=== PATIENT | male | born 1975 | race Caucasian/White ===

== ENCOUNTER 2021-09-10 08:16 | Emergency (ER) | payer OTHER, SELFPAY ==
[2021-09-10 08:25] VITALS: BP 130/89; PULSE 73; RESP 18; TEMP 36.7; O2SAT 99; BMI 38.0
[2021-09-10 08:37] VITALS: PULSE 63; O2SAT 96
--- NOTE | 2021-09-10 08:40 | ED.URI ---
HPI - URI/Sore Throat General Chief Complaint: Upper Respiratory Symptoms Stated Complaint: Achey, congestion, headache. poss exposure Time Seen by Provider: 09/10/21 08:30 Source: patient Mode of arrival: Ambulatory History of Present Illness HPI Narrative: Patient is a 46-year-old male with no past medical history presenting today with COVID like symptoms. He had a faint line on his home test. Symptoms have been ongoing for last 2 days. He has significant body aches cough sore throat. He is vaccinated with Juvenal and Juvenal back in November. He is here continue usual test or work. Has taken Nyquil which has helped with some body aches. Related Data Home Medications Medication Instructions Recorded Confirmed No Known Home Medications 09/10/21 09/10/21 Allergies Allergy/AdvReac Type Severity Reaction Status Date / Time No Known Drug Allergies Allergy Verified 09/10/21 08:35 Review of Systems Review of Systems ROS Unobtainable: All systems reviewed & are unremarkable except as noted in HPI and below Constitutional Constitutional: Reports as per HPI, Reports body ache(s), Reports chills, Reports fatigue, Reports fever(s) and Reports headache(s) ENT Ears, Nose, Mouth, and Throat: Denies dizziness, Reports headache(s) and Reports sore throat Cardiovascular Cardiovascular: Denies chest pain and Denies chest pain at rest Respiratory Respiratory: Reports cough Gastrointestinal Gastrointestinal: Denies abdominal pain, Denies nausea and Denies vomiting Musculoskeletal Musculoskeletal: Reports myalgias Integumentary/Breasts Skin/Breast: Reports rash Neurologic Neurologic: Denies dizziness and Reports headache(s) Endocrine Endocrine: Reports fatigue Patient History Medical History (Updated 09/10/21 @ 08:56 by Deepti Billy DO) Healthy adult male Social History Smoking Status: Never smoker Smoking Status: Never smoker alcohol intake frequency: 0-2 drinks per day Substance Use Type: does not use Exam Initial Vital Signs Initial Vital Signs: Vital Signs Temperature 98.1 F 09/10/21 08:25 Pulse Rate 73 09/10/21 08:25 Respiratory Rate 18 09/10/21 08:25 Blood Pressure 130/89 09/10/21 08:25 Pulse Oximetry 99 09/10/21 08:25 GENERAL: Alert 46-year-old male and in no acute distress. HEENT: Head atraumatic,EOMI, pupils reactive, face symmetric, moist mucous membranes CARDIOVASCULAR: Regular rate and rhythm without murmurs, rubs or gallops. RESPIRATORY: Breath sounds equal bilaterally, no wheezes rales or rhonchi. ABDOMEN: Soft, nontender. Normoactive bowel sounds all 4 quadrants. No guarding or rebound. EXTREMITIES: Normal range of motion, no clubbing or edema. Neurovascularly intact NEUROLOGICAL: Alert and oriented x4. SKIN: Warm, dry, no laceration, no petechiae, no rashes or lesions. Course Orders Ordered: ED Orders 09/10/21 08:35 COVID19 -Nasal swab/Pre-Proc Stat Vital Signs Vital signs: Vital Signs - 8 hr 09/10/21 08:25 09/10/21 08:37 09/10/21 09:00 Temperature 98.1 F Pulse Rate 73 63 59 L Respiratory Rate 18 Blood Pressure 130/89 Pulse Oximetry 99 96 96 09/10/21 09:03 09/10/21 09:05 Temperature Pulse Rate 52 L Respiratory Rate 20 Blood Pressure 132/87 Pulse Oximetry 95 MDM - URI/Sore Throat Lab Data Labs: Lab Results 09/10/21 Range/Units 08:35 SARS-CoV-2 (PCR) Positive H (Negative) MDM Narrative Medical decision making narrative: At this time patient has no high risk for morbidity vaccinated with Juvenal and Juvenal, discussion with him on home monitoring. Discharge Plan Departure Patient Disposition: Home Clinical Impression: COVID-19 Instructions: DI for COVID-19 (Suspected or Confirmed ) Activity Restrictions/Additional Instructions: * if you have not yet been vaccinated is still recommended and encouraged that you do so once your infection has passed *Follow up with your primary provider in 2-3 days or call [phone] AT HOME: -Monitor oxygen with pulse oximeter. If less than 90% for more than 1 hour please return to emergency department -I recommend lying on stomach for side rather than back, it has been proven to increase oxygen levels -Wash hands frequently. -Stay isolated at home please follow the isolation instructions below. -Increase fluid intake. -you may take Tylenol as directed if needed for pain or fever EMERGENCY warning signs for COVID-19: - Difficulty breathing or shortness of breath, oxygen less than 90% - Persistent pain or pressure in the chest - New confusion or inability to arouse - Bluish lips or face CDC Guidelines for home isolation: - Stay away from others - Limit contact with pets and animals: If you must care for a pet, wash your hands before and after interacting with them - Wear a mask while in public all places - Cover your mouth and nose with a tissue when you cough or sneeze. Dispose of tissues in a lined trash can and wash your hands immediately with soap and water for at least 20 seconds. If soap and water are not available, clean hands with alcohol-based hand goodwill representative that contains at least 60% alcohol. - Clean your hands often with soap and water for at least 20 seconds - Avoid touching your eyes, nose and mouth with unwashed hands - Do not share dishes, drinking glasses, cups, eating utensils, towels, or bedding with other people in your home. After using these items, wash them thoroughly with soap and water or put in the amusement ride operator. - Clean high-touch surfaces in your isolation area (?sick room? and bathroom) every day; let a caregiver clean and disinfect high-touch surfaces in other areas of the home. Clean the area or item with soap and water or another detergent if it is dirty. Then, use a household disinfectant. Prescriptions: No Action No Known Home Medications 0RF
[2021-09-10 08:53] LABS: COVID19 -Nasal RAPID POSITIVE (Negative)
[2021-09-10 09:00] VITALS: PULSE 59; O2SAT 96
[2021-09-10 09:03] VITALS: PULSE 52; RESP 20; O2SAT 95
[2021-09-10 09:05] VITALS: BP 132/87
== END 2021-09-10 09:13 | disposition home or self-care (01) ==
PROVIDERS: Emergency Provider Emergency Medicine
DX: U07.1 COVID-19 (principal)
CPT/HCPCS: 87635; 99281; 99282; C9803

== ENCOUNTER 2024-09-25 20:59 | Emergency (ER) | payer OTHER, SELFPAY ==
--- NOTE | 2024-09-25 21:00 | DI.RAD.S_ITS ---
PROCEDURE: XR CHEST 1V INDICATIONS: eval for PNA TECHNIQUE: One view of the chest was acquired. COMPARISON: None. FINDINGS: Surgical changes and devices: None. Lungs and pleura: Low lung volumes. No consolidation or pleural effusion. Mediastinum: Normal heart size Bones and chest wall: Unremarkable IMPRESSION: No acute radiographic abnormality on this single view study. Low lung volumes. Dictated by: Jose Nation M.D. on 09/25/2024 at 21:47 Approved by: Jose Nation M.D. on 09/25/2024 at 21:47
[2024-09-25 21:02] VITALS: BP 154/86; PULSE 83; RESP 16; TEMP 36.9; O2SAT 95; BMI 38.0
--- NOTE | 2024-09-25 22:04 | ED.GENADULT ---
HPI - General Adult General Chief complaint: Upper Respiratory Symptoms Stated complaint: possible pneumonia Time Seen by Provider: 09/25/24 21:00 Source: patient Mode of arrival: Family Vehicle History of Present Illness HPI narrative: Patient was a 49-year-old male. No reported medical problems. Takes no medications. Is here for evaluation of approximately 1 week of congestion, intermittent fevers, cough, chest congestion. He states this evening his cough got so bad that he actually threw up once. No recent travel. No recent antibiotics. He was concerned about pneumonia. Related Data Previous Rx's Medication Instructions Recorded benzonatate 100 mg capsule 100 mg PO BID-TID PRN cough #12 09/25/24 caps Allergies Allergy/AdvReac Type Severity Reaction Status Date / Time No Known Drug Allergies Allergy Verified 09/10/21 08:35 Review of Systems Review of Systems ROS Unobtainable: All systems reviewed & are unremarkable except as noted in HPI and below Patient History Medical History Healthy adult male Social History Smoking Status: Never smoker Smoking Status: Never smoker alcohol intake frequency: 0-2 drinks per day Exam Initial Vital Signs Initial Vital Signs: Vital Signs Temperature 98.5 F 09/25/24 21:02 Pulse Rate 83 09/25/24 21:02 Respiratory Rate 16 09/25/24 21:02 Blood Pressure 154/86 H 09/25/24 21:02 Pulse Oximetry 95 09/25/24 21:02 Oxygen Delivery Method Room Air 09/25/24 21:02 Const General: cooperative and comfortable HENMT Head: normal to inspection and normocephalic Resp Effort & Inspection: normal respiratory effort Auscultation: clear to auscultation bilaterally Cardio Rate: regular rate Rhythm: regular rhythm GI Inspection: non-distended Palpation: soft, No guarding and No tender Skin General: no rashes or lesions noted Neuro General: patient alert, patient awake and moves all extremities Extrem General: normal to inspection and capillary refill normal Course Orders Ordered: ED Orders 09/25/24 21:00 XR chest 1V Stat Discontinued Medications Benzonatate (Benzonatate 100 Mg Capsule) 100 mg PO NOW ONE Stop: 09/25/24 22:05 Last Admin: 09/25/24 22:10 Dose: 100 mg Documented By: DORI Vital Signs Vital signs: Vital Signs - 8 hr 09/25/24 21:02 Temperature 98.5 F Pulse Rate 83 Respiratory Rate 16 Blood Pressure 154/86 H Pulse Oximetry 95 Oxygen Delivery Method Room Air Medical Decision Making Imaging Data Chest x-ray: Radiologist's Impression: PROCEDURE: XR CHEST 1V INDICATIONS: eval for PNA TECHNIQUE: One view of the chest was acquired. COMPARISON: None. FINDINGS: Surgical changes and devices: None. Lungs and pleura: Low lung volumes. No consolidation or pleural effusion. Mediastinum: Normal heart size Bones and chest wall: Unremarkable IMPRESSION: No acute radiographic abnormality on this single view study. Low lung volumes. MDM Narrative Medical decision making narrative: Chest x-ray is unremarkable. Lungs are clear. He does have a cough. There was no indication for antibiotics. Will provide symptom control with Tessalon Perles. One dose given here in the ER and a prescription was sent to pharmacy of his choice. He was given return precautions. He expressed understanding and agreement. Discharge Plan Departure Patient Disposition: Home Clinical Impression: Cough Instructions: Cough (Alternative Therapy), Cough Activity Restrictions/Additional Instructions: You can take Tylenol and/or ibuprofen for any fevers or body aches. Chest x-ray today does not show any signs of pneumonia. You can continue to use the [id number] cough and cold preparations to try to help with the symptoms. Return to the emergency department for new symptoms. Prescriptions: New benzonatate 100 mg capsule 100 mg PO BID-TID PRN (Reason: cough) Qty: 12 0RF Referrals: *Temp,ED* [Primary Care Provider] - Stand Alone Forms: Patient Portal/API/Survey
[2024-09-25] MEDS: BENZONATATE 100 MG CAPSULE PO (22:10)
== END 2024-09-25 22:19 | disposition home or self-care (01) ==
PROVIDERS: Emergency Provider Emergency Medicine
DX: R05.9 Cough, unspecified (principal); R50.9 Fever, unspecified
CPT/HCPCS: 71045; 99283